=== PATIENT | male | born 1955 | race Caucasian/White ===

== ENCOUNTER 2020-09-21 11:26 | Emergency (ER) | payer MEDICARE ==
[2020-09-21] MEDS ORDERED: TOBREX OPTH5 ML/BTL OS (13:43)
[2020-09-21 13:56] VITALS: BP 131/79
== END 2020-09-21 13:56 | disposition home or self-care (01) ==
LOC: ED 11:26
DX: S05.02XA Injury of conjunctiva and corneal abrasion without foreign body, left eye, initial encounter (principal); W20.8XXA Other cause of strike by thrown, projected or falling object, initial encounter; Y93.89 Activity, other specified

== ENCOUNTER 2021-10-28 13:29 | Emergency (ER) | payer MEDICARE ==
[~2021-10-28] VITALS: Ht 167.6 cm; Wt 72.5 kg
[~2021-10-28 13:29] MED LIST: TOBREX OPTH5 ML/BTL OS
[2021-10-28 13:36] VITALS: BP 140/86
[2021-10-28] MEDS ORDERED: CEPHALEXIN500 M1 PO ×2 (13:37→13:41)
[2021-10-28 13:55] VITALS: BP 140/86
== END 2021-10-28 14:08 | disposition home or self-care (01) ==
LOC: ED 13:29
DX: L03.115 Cellulitis of right lower limb (principal)